=== PATIENT | male | born 1975 | race Caucasian/White ===

== ENCOUNTER 2018-10-13 11:09 | Outpatient (CLI) | payer BC, SELFPAY ==
[2018-10-13 13:08] LABS: ALT 27 U/L (12-78); AST 21 U/L (15-37); Alkaline Phosphatase 59 U/L (46-116); Anion Gap 9.2 mmol/L (3-11); BUN 19 mg/dL (7-18); Bilirubin, Total 0.4 mg/dL (0.2-1.0); CO2 28.8 mmol/L (21.0-32.0); CREATININE 1.08 mg/dL (0.70-1.30); Calcium 8.8 mg/dL (8.5-10.1); Chloride 102 mmol/L (98-107); Glucose 141 mg/dL (70-100); Potassium 4.5 mmol/L (3.5-5.1); Sodium 140 mmol/L (136-145); Total Protein 7.2 g/dL (6.4-8.2)
== END 2018-10-13 11:29 ==
PROVIDERS: PCP Emergency Medicine; Visit Provider Emergency Medicine
DX: L30.9 Dermatitis, unspecified (principal)
CPT/HCPCS: 36415; 80053

== ENCOUNTER 2018-10-29 13:43 | Outpatient (CLI) | payer BC, SELFPAY | END 2018-10-29 14:03 | PROVIDERS: PCP Emergency Medicine; Visit Provider Emergency Medicine | DX: E11.9 Type 2 diabetes mellitus without complications (principal); R73.09 Other abnormal glucose | CPT/HCPCS: 36415; 83036 ==

== ENCOUNTER 2018-12-01 07:31 | Outpatient (CLI) | payer BC, SELFPAY ==
[2018-12-01 08:56] LABS: TSH (W/Ref FT4) 1.32 uIU/mL (0.36-3.74)
== END 2018-12-01 07:51 ==
LOC: PRC 07:34 → LBO 07:37
PROVIDERS: PCP Emergency Medicine; Visit Provider Internal Medicine
DX: F32.9 Major depressive disorder, single episode, unspecified (principal)
CPT/HCPCS: 36415; 84443